=== PATIENT | male | born 1980 | race Caucasian/White ===

== ENCOUNTER 2020-12-17 12:26 | Emergency (ER) | payer OTHER | END 2020-12-17 14:25 | disposition home or self-care (01) | LOC: ER1 12:26 | DX: S16.1XXA Strain of muscle, fascia and tendon at neck level, initial encounter (principal); S86.911A Strain of unspecified muscle(s) and tendon(s) at lower leg level, right leg, initial encounter; S86.912A Strain of unspecified muscle(s) and tendon(s) at lower leg level, left leg, initial encounter; F17.210 Nicotine dependence, cigarettes, uncomplicated; V49.50XA Passenger injured in collision with unspecified motor vehicles in traffic accident, initial encounter; Y92.410 Unspecified street and highway as the place of occurrence of the external cause | CPT/HCPCS: 71045; 72125; 73564; 96372; 99284; J1885 ==

== ENCOUNTER 2021-08-20 17:44 | Emergency (ER) | payer OTHER ==
[2021-08-20] MEDS ORDERED: NORFLEX 100 MG100 MG PO (21:15)
[2021-08-20] MEDS ORDERED: LODINE CAP 300300 MG PO (21:15)
[2021-08-20] MEDS ORDERED: AUGMENTIN 875-1 EACH PO (21:23)
== END 2021-08-20 21:30 | disposition home or self-care (01) ==
LOC: ER1 17:44
DX: S01.01XA Laceration without foreign body of scalp, initial encounter (principal); S13.4XXA Sprain of ligaments of cervical spine, initial encounter; S23.3XXA Sprain of ligaments of thoracic spine, initial encounter; S71.152A Open bite, left thigh, initial encounter; S00.83XA Contusion of other part of head, initial encounter; S20.212A Contusion of left front wall of thorax, initial encounter; F17.290 Nicotine dependence, other tobacco product, uncomplicated; Y08.09XA Assault by strike by other specified type of sport equipment, initial encounter
CPT/HCPCS: 70450; 70486; 71045; 72125; 72128; 99284